=== PATIENT | male | born 1960 | race Caucasian/White ===

== ENCOUNTER 2018-10-03 10:23 | Day surgery (SDC) | payer BC ==
[~2018-10-03] VITALS: Ht 170.2 cm; Wt 72.5 kg
[2018-10-03 10:54] VITALS: BP 139/85; PULSE 56; TEMP 97.7
[2018-10-03] MEDS ORDERED: ZESTRIL 10MG10 MG PO (11:05)
[2018-10-03] MEDS ORDERED: PRILOSEC 20MG20 MG PO (11:06)
[2018-10-03] MEDS ORDERED: ADVIL200 MG PO (11:07)
[2018-10-03 12:50] VITALS: BP 122/72; PULSE 66
--- NOTE | 2018-10-03 12:50 | NUR ---
PATIENT BACK FROM ENDO SUITE AFTER COLONOSCOPY. PATIENT AWAKE AND ALERT, VERY TALKATIVE WITH ENDO NURSE. PATIENT AMBULATED WITHOUT ASSISTANCE TO CHAIR. , MIRYAM ALICEA, AT BEDSIDE. DR TALKING TO PATIENT ARRIVES. VS APPEAR STABLE. WILL CONTINUE TO MONITOR. WILL GET FOOD AND DRINK FOR PATIENT.
[2018-10-03 13:00] VITALS: BP 115/72; PULSE 62
--- NOTE | 2018-10-03 13:00 | NUR ---
PATIENT TALKING WITH . NO COMPLAINTS. NO N/V WITH FOOD OR DRINK. VS APPEAR STABLE. WILL CONTINUE TO MONITOR
[2018-10-03 13:15] VITALS: BP 111/75; PULSE 58
--- NOTE | 2018-10-03 13:15 | NUR ---
NO COMPLAINTS, VS APPEAR STABLE. WILL DISCHARGE PATIENT TO HOME WITH , MIRYAM ALICEA.
== END 2018-10-03 13:27 | disposition home or self-care (01) ==
LOC: SDCO 10:23
DX: Z12.11 Encounter for screening for malignant neoplasm of colon (principal); K57.30 Diverticulosis of large intestine without perforation or abscess without bleeding
CPT/HCPCS: OP; J2250; J2405; J3010; J7030